=== PATIENT | female | born 1995 | race Caucasian/White ===

== ENCOUNTER 2021-07-18 01:48 | Emergency (ER) | payer OTHER ==
[~2021-07-18] VITALS: Ht 170 cm; Wt 134.2 kg
[2021-07-18 02:04] VITALS: BP 149/93
[2021-07-18] MEDS ORDERED: morphine INJ 10 MG/ML 1ML (SYR OR VIAL) IVP STA ×2 (02:43→05:02)
[2021-07-18] MEDS ORDERED: ONDANSETRON 4 MG/2 ML (SDV) Z0FRAN IVP ONE (02:45)
[2021-07-18 02:46] LABS: BASOPHILS % (AUTO) 0 % (0-10); EOSINOPHILS # (AUTO) 0.2 10^3/uL (0.0-0.3); EOSINOPHILS % (AUTO) 2 % (0-10); HEMATOCRIT 43 % (35-52); LYMPHOCYTES # (AUTO) 3.8 X 10^3 (1.0-4.0); LYMPHOCYTES % (AUTO) 42 % (12-44); MEAN CORPUSCULAR HEMOGLOBIN 28 pg (25-34); MEAN CORPUSCULAR HGB CONC 32 g/dL (32-36); MEAN CORPUSCULAR VOLUME 88 fL (80-99); MEAN PLATELET VOLUME 10.3 fL (9.0-12.2); MONOCYTES # (AUTO) 0.6 X 10^3 (0.0-1.0); MONOCYTES % (AUTO) 7 % (0-12); NEUTROPHILS # (AUTO) 4.4 X 10^3 (1.8-7.8); NEUTROPHILS % (AUTO) 49 % (42-75); PLATELET COUNT 251 10^3/uL (130-400)
--- NOTE | 2021-07-18 02:48 | ED Back Pain ---
General Chief Complaint: Back Problems Stated Complaint: UPPER BACK PAIN Nursing Triage Note: PT PRESENTS WITH SUDDEN ONSET OF BACK PAIN THAT WOKE HER UP. REPORTS THE PAIN IS LOCATED ON THE LEFT UPPER/MIDDLE AREA OF HER BACK. REPORTS THE PAIN IS CAUSING SOB AND THE PAIN WORSENS WITH DEEP BREATHING. NO KNOWN INJURY. Source of Information: Patient History of Present Illness Date Seen by Provider: Jul 18, 2021 Time Seen by Provider: 02:00 Initial Comments Patient is a 25-year-old female presents with right upper quadrant pain rating to her right shoulder blade waking her from sleep 2 hours prior to arrival. Pain is sharp, rated moderate to severe worse with deep breathing. Pain is worse with palpation of upper abdomen. She reports shortness of breath secondary to pain. Denies fever chills, nausea vomiting or sweats. No flank pain, hematuria, urinary frequency urgency or dysuria. No history of kidney stones. No prior abdominal surgeries. Patient is currently on control. Timing/Duration: 1-3 Hours Severity: Moderate Pain/Injury Location: Other Radiation: Other Method of Injury: Other Modifying Factors: Improves With Other Associated Symptoms: other Allergies and Home Medications Allergies Coded Allergies: No Known Drug Allergies (Unverified , 07/18/21) Patient Home Medication List Home Medication List Reviewed: Yes Review of Systems Constitutional: see HPI EENTM: see HPI Respiratory: see HPI Cardiovascular: see HPI Gastrointestinal: see HPI Genitourinary: see HPI Musculoskeletal: see HPI Skin: see HPI Psychiatric/Neurological: See HPI All Other Systems Reviewed Negative Unless Noted: No Past Kpsqvsy-Kbkzqq-Kdimdh Hx Patient Social History Tobacco Use?: No Substance use?: No Alcohol Use?: No Pt feels they are or have been: No Immunizations Up To Date Influenza Vaccine Up-to-Date: No; Not Current Physical Exam Vital Signs Vital Signs - First Documented 07/18/21 07/18/21 02:04 02:48 Temp 37.0 Pulse 106 Resp 22 B/P (MAP) 149/93 (111) Pulse Ox 97 O2 Delivery Room Air Capillary Refill : Height, Weight, BMI Height: '" Weight: lbs. oz. kg; 46.00 BMI Method: General Appearance: No Apparent Distress, WD/WN, Moderate Distress HEENT: PERRL/EOMI Neck: Full Range of Motion, Non Tender, Supple Cardiovascular: Regular Rate, Rhythm Respiratory: Chest Non Tender, Lungs Clear Gastrointestinal: Soft, Tenderness (Right upper quadrant pain/tenderness) Back: Normal Inspection, No CVA Tenderness Neurologic/Psychiatric: Alert, Oriented x3, Normal Mood/Affect, conservation officer II-XII Norm as Tested Progress/Results/Core Measures Results/Orders Lab Results Laboratory Tests Test 07/18/21 02:41 07/18/21 03:20 Range/Units White Blood Count 9.0 4.3-11.0 10^3/uL Red Blood Count 4.93 3.80-5.11 10^6/uL Hemoglobin 14.0 11.5-16.0 g/dL Hematocrit 43 35-52 % Mean Corpuscular Volume 88 80-99 fL Mean Corpuscular Hemoglobin 28 25-34 pg Mean Corpuscular Hemoglobin Concent 32 32-36 g/dL Red Cell Distribution Width 13.9 10.0-14.5 % Platelet Count 251 130-400 10^3/uL Mean Platelet Volume 10.3 9.0-12.2 fL Neutrophils (%) (Auto) 49 42-75 % Lymphocytes (%) (Auto) 42 12-44 % Monocytes (%) (Auto) 7 0-12 % Eosinophils (%) (Auto) 2 0-10 % Basophils (%) (Auto) 0 0-10 % Neutrophils # (Auto) 4.4 1.8-7.8 X 10^3 Lymphocytes # (Auto) 3.8 1.0-4.0 X 10^3 Monocytes # (Auto) 0.6 0.0-1.0 X 10^3 Eosinophils # (Auto) 0.2 0.0-0.3 10^3/uL Basophils # (Auto) 0.0 0.0-0.1 10^3/uL Sodium Level 142 135-145 MMOL/L Potassium Level 4.3 3.6-5.0 MMOL/L Chloride Level 104 98-107 MMOL/L Carbon Dioxide Level 23 21-32 MMOL/L Anion Gap 15 H 5-14 MMOL/L Blood Urea Nitrogen 18 7-18 MG/DL Creatinine 0.68 0.60-1.30 MG/DL Estimat Glomerular Filtration Rate 123 BUN/Creatinine Ratio 26 Glucose Level 97 70-105 MG/DL Calcium Level 9.7 8.5-10.1 MG/DL Corrected Calcium 9.5 8.5-10.1 MG/DL Total Bilirubin 0.3 0.1-1.0 MG/DL Aspartate Amino Transf (AST/SGOT) 48 H 5-34 U/L Alanine Aminotransferase (ALT/SGPT) 35 0-55 U/L Alkaline Phosphatase 73 40-136 U/L Total Protein 7.7 6.4-8.2 GM/DL Albumin 4.3 3.2-4.5 GM/DL Lipase 36 8-78 U/L Urine Color YELLOW Urine Clarity CLEAR Urine pH 6.0 5-9 Urine Specific [place] >=1.030 1.016-1.022 Urine Protein 1+ H NEGATIVE Urine Glucose (UA) NEGATIVE NEGATIVE Urine Ketones NEGATIVE NEGATIVE Urine Nitrite NEGATIVE NEGATIVE Urine Bilirubin NEGATIVE NEGATIVE Urine Urobilinogen 0.2 < = 1.0 MG/DL Urine Leukocyte Esterase NEGATIVE NEGATIVE Urine RBC (Auto) 2+ H NEGATIVE Urine RBC 10-25 H /HPF Urine WBC 2-5 /HPF Urine Squamous Epithelial Cells 10-25 H /HPF Urine Crystals NONE /LPF Urine Bacteria MODERATE H /HPF Urine Casts PRESENT /LPF Urine Coarse Granular Casts 0-2 H /LPF Urine Mucus LARGE H /LPF Urine Culture Indicated NO My Orders Orders - JACKELIN FERMIN DO Cbc With Automated Diff (07/18/21 02:29) Comprehensive Metabolic Panel (07/18/21 02:29) Ua Culture If Indicated (07/18/21 02:29) Lipase (07/18/21 02:29) Urine Bedside (07/18/21 02:29) Morphine Injection (Morphine Injection (07/18/21 02:43) Ondansetron Injection (Zofran Injectio (07/18/21 02:45) Ct Abdomen/Pelvis W (07/18/21 03:08) Iohexol Injection (Omnipaque 350 Mg/Ml 1 (07/18/21 03:15) Received Contrast (Hold Metformin- Contr (07/18/21 03:15) Sodium Chloride Flush (Catheter Flush Sy (07/18/21 03:15) Ns (Ivpb) (Sodium Chloride 0.9% Ivpb Bag (07/18/21 03:15) Medications Given in ED Current Medications Medications Dose Ordered Sig/Jose Route Start Time Stop Time Status Last Admin Dose Admin Iohexol 100 ml ONCE ONCE IV 07/18/21 03:15 07/18/21 03:16 DC 07/18/21 03:34 100 ML Ondansetron HCl 4 mg ONCE ONCE IVP 07/18/21 02:45 07/18/21 02:46 DC 07/18/21 02:48 4 MG Sodium Chloride 10 ml NEEDED PRN IV 07/18/21 03:15 07/18/21 03:34 10 ML Sodium Chloride 100 ml ONCE ONCE IV 07/18/21 03:15 07/18/21 03:16 DC 07/18/21 03:34 100 ML Vital Signs/I&O 07/18/21 07/18/21 07/18/21 07/18/21 02:04 02:48 02:57 04:02 Temp 37.0 Pulse 106 93 91 Resp B/P (MAP) 149/93 (111) 163/105 100/61 Pulse Ox 97 99 98 O2 Delivery Room Air Room Air Room Air Blood Pressure Mean: 111 Departure Communication (Admissions) CT abdomen pelvis: No acute findings per radiology report. Lab and imaging studies reviewed and reassuring. Symptoms resolved with treatment. Abdomen remains soft nonsurgical. Symptomatology is suggestive of biliary colic versus peptic ulcer disease versus unknown cause. Recommendations are supportive care watchful waiting and PCP follow-up early next week. Return precautions reviewed. Patient verbalizes understanding and agreement with discharge instructions prior to departure. Impression Primary Impression: Right upper quadrant pain Disposition: 01 HOME, SELF-CARE Condition: Stable Departure-Patient Inst. Decision time for Depature: 04:56 Referrals: NO,LOCAL PHYSICIAN (PCP/Family) Primary Care Physician Patient Instructions: Abdominal Pain, Adult ED Add. Discharge Instructions: You were evaluated in the emergency department for upper abdominal pain radiating to your back. Lab and CT imaging studies were performed and are nond iagnostic. The exact cause of your symptoms has not been determined but is suggested of gallbladder or peptic ulcer disease. Please avoid starchy foods, fatty foods and follow-up with your PCP early next week. Take newly prescribed medications as directed. Return to the ED if new or worsening symptoms peer All discharge instructions reviewed with patient and/or family. Voiced understanding. Scripts Famotidine (Pepcid) 20 Mg Tablet 20 MG PO BID, #10 TAB Prov: JACKELIN FERMIN DO 07/18/21 Ondansetron (Ondansetron Odt) 4 Mg Tab.rapdis 4 MG PO Q6H, #10 TAB Prov: JACKELIN FERMIN DO 07/18/21 Tramadol HCl (Tramadol HCl) 50 Mg Tablet 50 MG PO Q6H PRN for PAIN for 3 Days, #12 TAB 0 Refills Prov: JACKELIN FERMIN DO 07/18/21 JACKELIN FERMIN DO Jul 18, 2021 02:48
[2021-07-18 03:01] LABS: POTASSIUM 4.3 MMOL/L (3.6-5.0)
[2021-07-18 03:02] LABS: ALBUMIN 4.3 GM/DL (3.2-4.5); BILIRUBIN,TOTAL 0.3 MG/DL (0.1-1.0); CALCIUM 9.7 MG/DL (8.5-10.1); CREATININE SERUM 0.68 MG/DL (0.60-1.30); TOTAL PROTEIN 7.7 GM/DL (6.4-8.2)
[2021-07-18] MEDS ORDERED: HOLD METFORMIN - RECEIVED CONTRAST 20 ML VIAL IV SCH (03:15)
[2021-07-18] MEDS ORDERED: IOHEXOL 350 MG/ML 100 ML (OMNIPAQUE 350) VIAL IV ONE (03:15)
[2021-07-18] MEDS ORDERED: CATHETER FLUSH 10 ML SYR IV PRN (03:15)
[2021-07-18] MEDS ORDERED: NS 100 ML (IVPB) BAG IV ONE (03:15)
[2021-07-18 03:22] LABS: BILIRUBIN,URINE NEGATIVE (NEGATIVE); CLARITY,URINE CLEAR; COLOR,URINE YELLOW; GLUCOSE, URINE (UA) NEGATIVE (NEGATIVE); KETONES,URINE NEGATIVE (NEGATIVE); LEUKOCYTE ESTERASE ,URINE NEGATIVE (NEGATIVE); NITRITE,URINE NEGATIVE (NEGATIVE); PROTEIN,URINE 1+ (NEGATIVE)
[2021-07-18 03:27] LABS: BACTERIA,URINE MODERATE /HPF
[2021-07-18] MEDS ORDERED: FAMO-119 PO (05:00)
[2021-07-18] MEDS ORDERED: ONDA4TAB11 PO (05:00)
[2021-07-18] MEDS ORDERED: TRM50T PO (05:00)
--- NOTE | 2021-07-18 06:59 | Diagnostic Imaging Report ---
PROCEDURE: CT abdomen and pelvis with contrast. TECHNIQUE: Multiple contiguous axial images were obtained through the abdomen and pelvis after administration of intravenous contrast. Auto Exposure Controls were utilized during the CT exam to meet ALARA standards for radiation dose reduction. All CT scans use one or more of the following dose optimizing techniques: automated exposure control, MA and/or KvP adjustment based on patient size and exam type or iterative reconstruction. INDICATION: Right upper quadrant pain. EXAMINATION: CT abdomen and pelvis with contrast 07/18/2021. FINDINGS: The lung bases appear clear. There is mild fatty infiltration within the liver which is otherwise normal. Gallbladder unremarkable. Spleen unremarkable. Adjacent splenule noted. Adrenal glands and pancreas normal. There is no acute process in either kidney. There are diffuse distended thick walled small bowel loops throughout the left mid abdomen. No obstructive process is seen. There is no ascites or free air. Scattered slightly prominent lymph nodes seen throughout the right lower quadrant nonspecific. The adjacent appendix appears normal. The osseous structures demonstrate no evidence for acute abnormality. IMPRESSION: 1. Slightly prominent lymph nodes in the right lower quadrant which could be normal for patient versus a process such as mesenteric adenitis. Correlate with symptoms. 2. Minimally prominent small bowel loops in the left upper quadrant likely due to timing of peristalsis with a mild enteritis not excluded. Again correlate with patient's symptoms. Otherwise incidental findings as discussed above. There are a few additional nonemergent findings not mentioned in the [facility] report. Dictated by: Dictated on workstation # [id number]
== END 2021-07-18 05:28 | disposition home or self-care (01) ==
LOC: ER FS 01:57
DX: R10.11 Right upper quadrant pain (principal)
CPT/HCPCS: 36415; 74177; 80053; 81000; 83690; 85025; Q9967

== ENCOUNTER → 2021-08-03 | Outpatient (CLI) | payer OTHER ==
[~2021-08-03] MED LIST: FAMO-119 PO; ONDA4TAB11 PO; TRM50T PO
--- NOTE | 2021-08-03 10:03 | Diagnostic Imaging Report ---
PROCEDURE: US Gallbladder. INDICATION: Right upper quadrant pain TECHNIQUE: Multiple grayscale sonographic images were obtained of the right upper quadrant of the abdomen. CORRELATION STUDY: None FINDINGS: LIVER: There is generalized increased echotexture within the visualized portions of the liver. The main portal vein is patent and with normal direction of flow. Liver length 18.3 cm. GALLBLADDER: The gallbladder demonstrates no definitive shadowing gallstones, abnormal gallbladder wall thickening or pericholecystic fluid. COMMON BILE DUCT: Nondilated at 0.3 cm. AORTA/IVC: Not well visualized. PANCREAS: Visualized portions appearing unremarkable. RIGHT KIDNEY: 12.1 x 6.2 x 5.2 cm. No hydronephrosis. OTHER: None. IMPRESSION: 1. Fatty infiltration of the liver parenchyma. Otherwise, unremarkable appearing right upper quadrant abdominal ultrasound. Dictated by: Dictated on workstation # [id number]
== END ==
LOC: RAD 08:30
PROVIDERS: ATTEND Surgery
DX: K76.0 Fatty (change of) liver, not elsewhere classified (principal)
CPT/HCPCS: 76705

== ENCOUNTER 2021-09-04 03:50 | Emergency (ER) | payer OTHER ==
[~2021-09-04] VITALS: Ht 170.5 cm; Wt 131.0 kg
[2021-09-04] MEDS ORDERED: morphine INJ 10 MG/ML 1ML (SYR OR VIAL) IVP STA ×2 (04:14→04:37)
[2021-09-04] MEDS ORDERED: NS IV 1000 ML 1,000 ML IV SCH (04:15)
[2021-09-04] MEDS ORDERED: FAMOTIDINE 20MG/2ML IV (PEPCID) IVP ONE (04:15)
[2021-09-04] MEDS ORDERED: ONDANSETRON 4 MG/2 ML (SDV) Z0FRAN IVP ONE (04:15)
[2021-09-04] MEDS ORDERED: KETOROLAC 30 MG/ML VIAL IVP ONE (04:15)
--- NOTE | 2021-09-04 04:20 | ED Abdominal Pain ---
General Chief Complaint: Abdominal/GI Problems Stated Complaint: ABDOMINAL PAIN Nursing Triage Note: Pt c/o right sided abd pain x 30 minutes with n/v. Pt stated "this feels like my gallbladder but this is the worst. I was supposed to have a hiatal scan but it somehow got cancelled." Pt denies fever or urinary symptoms. 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 Source of Information: Patient History of Present Illness Date Seen by Provider: September 04, 2021 Time Seen by Provider: 04:00 Initial Comments Patient is a 25-year-old female who presents with epigastric pain nausea vomiting. Pain is moderate to severe radiates around back towards right shoulder blade. It is worse with palpation after eating. This is patient's third episode in several months. She has been evaluated in this emergency department before by this provider and diagnosed with biliary colic. She had outpatient gallbladder ultrasound which was negative is currently awaiting HIDA scan.. She does follow-up with a general surgeon in the office. She reports nausea without vomiting. No fever chills or sweats. No chest pain palpitations or shortness of breath. No flank pain, urinary frequency urgency or dysuria or hematuria. No history of kidney stones. No constipation or diarrhea. Last menstrual period was 2 months ago. No other acute symptoms or complaints. Timing/Duration: 1-3 Hours Severity/Quality: Other Location: Other Radiation: Other Activities at Onset: Other Modifying Factors: Improves With Other Associated Symptoms: Other Allergies and Home Medications Allergies Coded Allergies: No Known Drug Allergies (Unverified , 07/18/21) Patient Home Medication List Home Medication List Reviewed: Yes Famotidine (Pepcid) 20 Mg Tablet, 20 MG PO BID Prescribed by: JACKELIN FERMIN on 07/18/21 0500 Ondansetron (Ondansetron Odt) 4 Mg Tab.rapdis, 4 MG PO Q6H Prescribed by: JACKELIN FERMIN on 07/18/21 0500 Tramadol HCl (Tramadol HCl) 50 Mg Tablet, 50 MG PO Q6H PRN for PAIN Prescribed by: JACKELIN FERMIN on 07/18/21 0500 Review of Systems Review of Systems Constitutional: see HPI EENTM: See HPI Respiratory: See HPI Cardiovascular: See HPI Gastrointestinal: See HPI Genitourinary: See HPI Skin: see HPI Endocrine: See HPI Hematologic/Lymphatic: See HPI Past Npyguxn-Obklob-Ndepcu Hx Patient Social History Tobacco Use?: Yes Use of E-Cig and/or Vaping dev: No Substance use?: No Alcohol Use?: No Pt feels they are or have been: No Immunizations Up To Date Influenza Vaccine Up-to-Date: No; Not Current First/Initial COVID19 Vaccinat: denies Physical Exam Vital Signs Vital Signs - First Documented 09/04/21 03:52 Temp 36.1 Pulse 109 Resp 17 B/P (MAP) 143/78 (99) Pulse Ox 98 O2 Delivery Room Air Capillary Refill : Height/Weight/BMI Height: '" Weight: lbs. oz. kg; 45.00 BMI Method: General Appearance: moderate distress HEENT: PERRL/EOMI, normal ENT inspection Respiratory: lungs clear Cardiovascular: regular rate, rhythm Gastrointestinal: soft, tenderness (mid epigastric ) Back: normal inspection, no CVA tenderness Neurologic/Psychiatric: alert, oriented x 3 Focused Exam Sepsis Stage: Ruled Out Progress/Results/Core Measures Results/Orders My Orders Orders - JACKELIN FERMIN DO Cbc With Automated Diff (09/04/21 04:08) Comprehensive Metabolic Panel (09/04/21 04:08) Ns Iv 1000 Ml (Sodium Chloride 0.9%) (09/04/21 04:15) Ondansetron Injection (Zofran Injectio (09/04/21 04:15) Famotidine Injection (Pepcid Injection) (09/04/21 04:15) Hcg,Qualitative Serum (09/04/21 04:08) Ketorolac Injection (Toradol Injection) (09/04/21 04:15) Morphine Injection (Morphine Injection (09/04/21 04:14) Vital Signs/I&O 09/04/21 03:52 Temp 36.1 Pulse 109 Resp 17 B/P (MAP) 143/78 (99) Pulse Ox 98 O2 Delivery Room Air Blood Pressure Mean: 99 Departure Communication (Admissions) Patient with recurrent biliary colic. Labs reviewed abdomen soft, nonsurgical. Patient resting comfortably on recheck. Recommendations supportive care with PCP follow-up. Impression Primary Impression: Biliary colic Disposition: 01 HOME, SELF-CARE Condition: Stable Departure-Patient Inst. Referrals: NO,LOCAL PHYSICIAN (PCP/Family) Primary Care Physician Patient Instructions: Severe Abdominal Pain, Adult (DC) Add. Discharge Instructions: You were evaluated in the emergency department for abdominal pain. Your exam is consistent with recurrent gallbladder pain. Please go home and rest, drink clear liquids only for the next 6 to 12 hours and gradually increase to a bland diet as tolerated. Take newly prescribed medications as directed follow-up with Dr. AGUILAR office to coordinate outpatient HIDA scan. Return to the ED if new or worsening symptoms. All discharge instructions reviewed with patient and/or family. Voiced understanding. Scripts Ondansetron (Ondansetron Odt) 4 Mg Tab.rapdis 4 MG PO Q6H, #10 TAB Prov: JACKELIN FERMIN DO 09/04/21 Oxycodone HCl/Acetaminophen (Percocet 5-325 mg Tablet) 1 Each Tablet 1 TAB PO Q4H for PAIN-MODERATE MDD 6 TABS for 7 Days, #14 TAB Prov: JACKELIN FERMIN DO 09/04/21 JACKELIN FERMIN DO September 04, 2021 04:20
[2021-09-04] MEDS ORDERED: ONDA4TAB11 PO (04:25)
[2021-09-04] MEDS ORDERED: OXYC1TAB87 PO (04:25)
[2021-09-04 04:29] LABS: BASOPHILS # (AUTO) 0.1 10^3/uL (0.0-0.1); BASOPHILS % (AUTO) 1 % (0-10); EOSINOPHILS # (AUTO) 0.1 10^3/uL (0.0-0.3); EOSINOPHILS % (AUTO) 2 % (0-10); HEMATOCRIT 41 % (35-52); HEMOGLOBIN 13.9 g/dL (11.5-16.0); LYMPHOCYTES # (AUTO) 3.5 10^3/uL (1.0-4.0); LYMPHOCYTES % (AUTO) 52 % (12-44); MEAN CORPUSCULAR HEMOGLOBIN 28 pg (25-34); MEAN CORPUSCULAR HGB CONC 34 g/dL (32-36); MEAN CORPUSCULAR VOLUME 82 fL (80-99); MEAN PLATELET VOLUME 9.5 fL (9.0-12.2); MONOCYTES # (AUTO) 0.8 10^3/uL (0.0-1.0); MONOCYTES % (AUTO) 12 % (0-12); NEUTROPHILS # (AUTO) 2.3 10^3/uL (1.8-7.8); NEUTROPHILS % (AUTO) 33 % (42-75); PLATELET COUNT 266 10^3/uL (130-400); WHITE BLOOD COUNT 6.9 10^3/uL (4.3-11.0)
[2021-09-04 04:49] LABS: CREATININE SERUM 0.77 MG/DL (0.60-1.30); POTASSIUM 4.1 MMOL/L (3.6-5.0)
[2021-09-04 04:50] VITALS: BP 143/78
[2021-09-04 04:50] LABS: ALBUMIN 4.1 GM/DL (3.2-4.5); BILIRUBIN,TOTAL 0.3 MG/DL (0.1-1.0); CALCIUM 9.6 MG/DL (8.5-10.1); TOTAL PROTEIN 7.6 GM/DL (6.4-8.2)
== END 2021-09-04 04:50 | disposition home or self-care (01) ==
LOC: EDUNIT# 03:50 → ER FS 03:53
DX: K80.50 Calculus of bile duct without cholangitis or cholecystitis without obstruction (principal)
CPT/HCPCS: 36415; 80053; 84703; 85025

== ENCOUNTER 2021-09-04 18:14 | Emergency (ER) | payer OTHER ==
[~2021-09-04] VITALS: Ht 170.2 cm; Wt 131.5 kg
[~2021-09-04 18:14] MED LIST changes: +OXYC1TAB87 PO
[2021-09-04 18:22] VITALS: BP 119/96
[2021-09-04] MEDS ORDERED: HYOSCYAMINE 0.125 MG (LEVSIN) TAB ONE (19:28)
[2021-09-04] MEDS ORDERED: fentaNYL INJ 100 MCG/2 ML AMP ONE (19:28)
[2021-09-04] MEDS ORDERED: KETOROLAC 30 MG/ML VIAL ONE (19:29)
[2021-09-04] MEDS ORDERED: fentaNYL INJ 100 MCG/2 ML AMP IVP ONE (19:30)
[2021-09-04] MEDS ORDERED: HYOSCYAMINE 0.125 MG (LEVSIN) TAB PO ONE (19:30)
[2021-09-04] MEDS ORDERED: KETOROLAC 30 MG/ML VIAL IVP ONE (19:30)
--- NOTE | 2021-09-04 19:36 | ED Abdominal Pain ---
General Chief Complaint: Abdominal/GI Problems Stated Complaint: GALLBLADDER ATTACK Nursing Triage Note: PT AMBULATE TO ROOM 01 WITH C/O GALLBLADDER PAIN. PT REPORTS A GALLBLADDER ATTACK LASTING X3 HOURS. PT WAS SEEN IN THE [place] ED THIS MORNING AND TOLD THAT PAIN MAY BE RELATED TO HER GALLBLADDER. PT GIVEN PERCOCET AND PT STATES THAT THIS PAIN MED IS NOT ALEIVING THE PAIN. PT REPORTS A HIDASCAN IS SCHEDULED FOR TUESDAY. Source of Information: Patient Exam Limitations: No Limitations History of Present Illness Date Seen by Provider: September 04, 2021 Time Seen by Provider: 19:34 Initial Comments To ER with c/o gallbladder attack. States that she has had a normal gallbladder US, is scheduled for HIDA scan in 72 hours. Was at [facility] today and given Percocet with no improvement in Pain. This particular attack is severe epigastric abdominal pain tender to touch associated with vomiting this morning. Timing/Duration: 4-6 Hours Severity/Quality: Moderate Radiation: No Radiation Associated Symptoms: Nausea/Vomiting Allergies and Home Medications Allergies Coded Allergies: No Known Drug Allergies (Unverified , 07/18/21) Patient Home Medication List Home Medication List Reviewed: Yes Famotidine (Pepcid) 20 Mg Tablet, 20 MG PO BID Prescribed by: JACKELIN FERMIN on 07/18/21 0500 Ondansetron (Ondansetron Odt) 4 Mg Tab.rapdis, 4 MG PO Q6H Prescribed by: JACKELIN FERMIN on 07/18/21 0500 Ondansetron (Ondansetron Odt) 4 Mg Tab.rapdis, 4 MG PO Q6H Prescribed by: JACKELIN FERMIN on 09/04/21 0425 Oxycodone HCl/Acetaminophen (Percocet 5-325 mg Tablet) 1 Each Tablet, 1 TAB PO Q4H Prescribed by: JACKELIN FERMIN on 09/04/21 0426 Tramadol HCl (Tramadol HCl) 50 Mg Tablet, 50 MG PO Q6H PRN for PAIN Prescribed by: JACKELIN FERMIN on 07/18/21 0500 Review of Systems Review of Systems Constitutional: see HPI EENTM: No Symptoms Reported Respiratory: No Symptoms Reported Cardiovascular: No Symptoms Reported Gastrointestinal: See HPI, Abdominal Pain, Nausea, Vomiting Genitourinary: No Symptoms Reported Musculoskeletal: no symptoms reported Skin: no symptoms reported Psychiatric/Neurological: No Symptoms Reported Endocrine: No Symptoms Reported Hematologic/Lymphatic: No Symptoms Reported Past Dihznkc-Cgwwgp-Uiempi Hx Patient Social History Smoking Status: Never a Smoker Smokeless Tobacco Frequency: Never a User Use of E-Cig and/or Vaping dev: No Use of E-Cig and/or Vaping Roberto: Never a User Substance use?: No Alcohol Use?: No Pt feels they are or have been: No Immunizations Up To Date First/Initial COVID19 Vaccinat: denies Physical Exam Vital Signs Vital Signs - First Documented 09/04/21 18:22 Temp 36.4 Pulse 83 Resp 18 B/P (MAP) 119/96 (104) O2 Delivery Room Air Capillary Refill : Less Than 3 Seconds Height/Weight/BMI Height: '" Weight: lbs. oz. kg; 45.00 BMI Method: General Appearance: WD/WN, no apparent distress HEENT: PERRL/EOMI, normal ENT inspection Neck: non-tender, full range of motion Gastrointestinal: normal bowel sounds, soft, tenderness Extremities: normal range of motion, non-tender Neurologic/Psychiatric: alert, normal mood/affect, oriented x 3 Skin: normal color, warm/dry Progress/Results/Core Measures Results/Orders Lab Results Laboratory Tests Test 09/04/21 18:32 Range/Units White Blood Count 5.6 4.3-11.0 10^3/uL Red Blood Count 5.10 3.80-5.11 10^6/uL Hemoglobin 14.4 11.5-16.0 g/dL Hematocrit 43 35-52 % Mean Corpuscular Volume 85 80-99 fL Mean Corpuscular Hemoglobin 28 25-34 pg Mean Corpuscular Hemoglobin Concent 33 32-36 g/dL Red Cell Distribution Width 13.1 10.0-14.5 % Platelet Count 270 130-400 10^3/uL Mean Platelet Volume 9.8 9.0-12.2 fL Immature Granulocyte % (Auto) 0 % Neutrophils (%) (Auto) 54 42-75 % Lymphocytes (%) (Auto) 34 12-44 % Monocytes (%) (Auto) 9 0-12 % Eosinophils (%) (Auto) 1 0-10 % Basophils (%) (Auto) 1 0-10 % Neutrophils # (Auto) 3.0 1.8-7.8 10^3/uL Lymphocytes # (Auto) 1.9 1.0-4.0 10^3/uL Monocytes # (Auto) 0.5 0.0-1.0 10^3/uL Eosinophils # (Auto) 0.1 0.0-0.3 10^3/uL Basophils # (Auto) 0.1 0.0-0.1 10^3/uL Immature Granulocyte # (Auto) 0.0 0.0-0.1 10^3/uL Sodium Level 138 135-145 MMOL/L Potassium Level 4.1 3.6-5.0 MMOL/L Chloride Level 104 98-107 MMOL/L Carbon Dioxide Level 21 21-32 MMOL/L Anion Gap 13 5-14 MMOL/L Blood Urea Nitrogen 13 7-18 MG/DL Creatinine 0.83 0.60-1.30 MG/DL Estimat Glomerular Filtration Rate 100 BUN/Creatinine Ratio 16 Glucose Level 108 H 70-105 MG/DL Calcium Level 9.3 8.5-10.1 MG/DL Corrected Calcium 9.3 8.5-10.1 MG/DL Total Bilirubin 0.7 0.1-1.0 MG/DL Aspartate Amino Transf (AST/SGOT) 60 H 5-34 U/L Alanine Aminotransferase (ALT/SGPT) 89 H 0-55 U/L Alkaline Phosphatase 93 40-136 U/L Total Protein 7.6 6.4-8.2 GM/DL Albumin 4.0 3.2-4.5 GM/DL Lipase 34 8-78 U/L My Orders Orders - ALEJANDRO OTOOLE APRN Cbc With Automated Diff (09/04/21 19:26) Comprehensive Metabolic Panel (09/04/21 19:26) Lipase (09/04/21 19:26) Hyoscyamine Sl Tablet (Levsin Sl Tablet) (09/04/21 19:30) Ketorolac Injection (Toradol Injection) (09/04/21 19:30) Fentanyl Inj (Sublimaze Injection) (09/04/21 19:30) Hyoscyamine Sl Tablet (Levsin Sl Tablet) (09/04/21 19:28) Fentanyl Inj (Sublimaze Injection) (09/04/21 19:28) Ketorolac Injection (Toradol Injection) (09/04/21 19:29) Medications Given in ED Current Medications Medications Dose Ordered Sig/Jose Route Start Time Stop Time Status Last Admin Dose Admin Fentanyl Citrate 75 mcg ONCE ONCE IVP 09/04/21 19:30 09/04/21 19:32 DC 09/04/21 19:30 75 MCG Hyoscyamine Sulfate 0.125 mg ONCE ONCE PO 09/04/21 19:30 09/04/21 19:32 DC 09/04/21 19:30 0.125 MG Ketorolac Tromethamine 30 mg STK-MED ONCE .ROUTE 09/04/21 19:29 09/04/21 19:31 DC 09/04/21 19:30 30 MG Vital Signs/I&O 09/04/21 18:22 Temp 36.4 Pulse 83 Resp 18 B/P (MAP) 119/96 (104) O2 Delivery Room Air Blood Pressure Mean: 104 Departure Communication (Admissions) 2009-Is now pain free. Will dc to home. Impression Primary Impression: Right upper quadrant pain Additional Impression: Biliary colic Disposition: HOME, SELF-CARE Condition: Stable Departure-Patient Inst. Decision time for Depature: 20:05 Referrals: NO,LOCAL PHYSICIAN (PCP/Family) Primary Care Physician Patient Instructions: Acute Pain, Adult (DC) Add. Discharge Instructions: REturn to ER for any concerns 2. keep your appointment for the HIDA scan on Tuesday. All discharge instructions reviewed with patient and/or family. Voiced unders tanding. ALEJANDRO OTOOLE PICKLER HELPER September 04, 2021 19:36
[2021-09-04 19:42] LABS: BASOPHILS # (AUTO) 0.1 10^3/uL (0.0-0.1); BASOPHILS % (AUTO) 1 % (0-10); EOSINOPHILS # (AUTO) 0.1 10^3/uL (0.0-0.3); EOSINOPHILS % (AUTO) 1 % (0-10); HEMATOCRIT 43 % (35-52); HEMOGLOBIN 14.4 g/dL (11.5-16.0); LYMPHOCYTES # (AUTO) 1.9 10^3/uL (1.0-4.0); LYMPHOCYTES % (AUTO) 34 % (12-44); MEAN CORPUSCULAR HEMOGLOBIN 28 pg (25-34); MEAN CORPUSCULAR HGB CONC 33 g/dL (32-36); MEAN CORPUSCULAR VOLUME 85 fL (80-99); MEAN PLATELET VOLUME 9.8 fL (9.0-12.2); MONOCYTES # (AUTO) 0.5 10^3/uL (0.0-1.0); MONOCYTES % (AUTO) 9 % (0-12); NEUTROPHILS % (AUTO) 54 % (42-75); PLATELET COUNT 270 10^3/uL (130-400); WHITE BLOOD COUNT 5.6 10^3/uL (4.3-11.0)
[2021-09-04 19:59] LABS: BILIRUBIN,TOTAL 0.7 MG/DL (0.1-1.0); CALCIUM 9.3 MG/DL (8.5-10.1); CREATININE SERUM 0.83 MG/DL (0.60-1.30); POTASSIUM 4.1 MMOL/L (3.6-5.0); TOTAL PROTEIN 7.6 GM/DL (6.4-8.2)
== END 2021-09-04 20:25 | disposition home or self-care (01) ==
LOC: EDUNIT# 18:14 → ER 18:17
DX: K80.50 Calculus of bile duct without cholangitis or cholecystitis without obstruction (principal)
CPT/HCPCS: 36415; 80053; 83690; 85025

== ENCOUNTER 2021-09-06 06:52 | Emergency (ER) | payer OTHER ==
[~2021-09-06] VITALS: Ht 170.2 cm; Wt 133.0 kg
[2021-09-06 06:55] VITALS: BP 130/83
[2021-09-06] MEDS ORDERED: FAMOTIDINE 20MG/2ML IV (PEPCID) IV STA (07:07)
[2021-09-06] MEDS ORDERED: KETOROLAC 30 MG/ML VIAL IVP STA (07:07)
[2021-09-06] MEDS ORDERED: METOCLOPRAMIDE INJ 10 MG/2 ML (REGLAN) IVP STA (07:07)
[2021-09-06] MEDS ORDERED: LACTATED RINGERS 1,000 ML IV STA (07:07)
[2021-09-06] MEDS ORDERED: HYOSCYAMINE 0.125 MG (LEVSIN) TAB SL ONE (07:15)
--- NOTE | 2021-09-06 07:22 | ED GI ---
General Chief Complaint: Abdominal/GI Problems Stated Complaint: ABDOMINAL PAIN History of Present Illness Date Seen by Provider: September 06, 2021 Time Seen by Provider: 07:05 Initial Comments 25 yo female presents with RUQ pain, pt has been having recurrent pain. Pt has been seen multiple times for similar pain. Pt seen both here and via [facility] in last 48 hrs. pt is scheduled for a HIDA scan tomorrow. pt reports she has taken 2 hydrocodone without any relief. pt complains of nausea, some vomiting. pt has had neg ct abd and gallbladder US. She presents today because of pain. no reports of fever, chills, cough, cp or urinary symptoms. Allergies and Home Medications Allergies Coded Allergies: No Known Drug Allergies (Unverified , 07/18/21) Patient Home Medication List Home Medication List Reviewed: Yes Famotidine (Pepcid) 20 Mg Tablet, 20 MG PO BID Prescribed by: JACKELIN FERMIN on 07/18/21 0500 Hyoscyamine Sulfate (Levsin-Sl) 0.125 Mg Tab.subl, 0.125 MG SL Q4H PRN for PAIN- MODERATE (5-7) Prescribed by: NAE ADEN on 09/06/21 0842 Ondansetron (Ondansetron Odt) 4 Mg Tab.rapdis, 4 MG PO Q6H Prescribed by: JACKELIN FERMIN on 07/18/21 0500 Ondansetron (Ondansetron Odt) 4 Mg Tab.rapdis, 4 MG PO Q6H Prescribed by: JACKELIN FERMIN on 09/04/21 0425 Oxycodone HCl/Acetaminophen (Percocet 5-325 mg Tablet) 1 Each Tablet, 1 TAB PO Q4H Prescribed by: JACKELIN FERMIN on 09/04/21 0426 Tramadol HCl (Tramadol HCl) 50 Mg Tablet, 50 MG PO Q6H PRN for PAIN Prescribed by: JACKELIN FERMIN on 07/18/21 0500 Review of Systems Review of Systems Constitutional: No chills, No fever Respiratory: Denies Cough, Denies Shortness of Air Cardiovascular: Denies Chest Pain, Denies Edema Gastrointestinal: Abdominal Pain, Nausea, Vomiting Musculoskeletal: back pain Skin: no symptoms reported Psychiatric/Neurological: No Symptoms Reported Endocrine: No Symptoms Reported Hematologic/Lymphatic: No Symptoms Reported Past Lskuhyb-Afwpdk-Uxptkg Hx Immunizations Up To Date First/Initial COVID19 Vaccinat: denies Physical Exam Vital Signs Vital Signs - First Documented 09/06/21 06:55 Temp 35.8 Pulse 85 Resp 16 B/P (MAP) 130/83 (99) Pulse Ox 98 O2 Delivery Room Air Capillary Refill : Height/Weight/BMI Height: '" Weight: lbs. oz. kg; 45.00 BMI Method: General Appearance: mild distress, obese HEENT: PERRL/EOMI, normal ENT inspection Neck: full range of motion, supple Respiratory: lungs clear, normal breath sounds, no respiratory distress Cardiovascular: normal peripheral pulses, regular rate, rhythm Gastrointestinal: soft; No distended, No guarding; tenderness Extremities: normal range of motion Neurologic/Psychiatric: alert, normal mood/affect, oriented x 3 Skin: normal color Focused Exam Lactate Level 09/06/21 08:25: Lactic Acid Level 1.46 Lactic Acid Level Laboratory Tests Test 09/06/21 08:25 Lactic Acid Level 1.46 MMOL/L (0.50-2.00) Progress/Results/Core Measures Results/Orders Lab Results Laboratory Tests Test 09/06/21 07:05 09/06/21 07:07 09/06/21 08:25 Range/Units White Blood Count 7.5 4.3-11.0 10^3/uL Red Blood Count 5.32 H 3.80-5.11 10^6/uL Hemoglobin 14.7 11.5-16.0 g/dL Hematocrit 45 35-52 % Mean Corpuscular Volume 84 80-99 fL Mean Corpuscular Hemoglobin 28 25-34 pg Mean Corpuscular Hemoglobin Concent 33 32-36 g/dL Red Cell Distribution Width 13.2 10.0-14.5 % Platelet Count 268 130-400 10^3/uL Mean Platelet Volume 10.0 9.0-12.2 fL Immature Granulocyte % (Auto) 0 % Neutrophils (%) (Auto) 45 42-75 % Lymphocytes (%) (Auto) 44 12-44 % Monocytes (%) (Auto) 9 0-12 % Eosinophils (%) (Auto) 2 0-10 % Basophils (%) (Auto) 1 0-10 % Neutrophils # (Auto) 3.3 1.8-7.8 10^3/uL Lymphocytes # (Auto) 3.3 1.0-4.0 10^3/uL Monocytes # (Auto) 0.7 0.0-1.0 10^3/uL Eosinophils # (Auto) 0.2 0.0-0.3 10^3/uL Basophils # (Auto) 0.1 0.0-0.1 10^3/uL Immature Granulocyte # (Auto) 0.0 0.0-0.1 10^3/uL Erythrocyte Sedimentation Rate 11 0-20 MM/HR Sodium Level 137 135-145 MMOL/L Potassium Level 4.7 3.6-5.0 MMOL/L Chloride Level 103 98-107 MMOL/L Carbon Dioxide Level 24 21-32 MMOL/L Anion Gap 10 5-14 MMOL/L Blood Urea Nitrogen 15 7-18 MG/DL Creatinine 0.79 0.60-1.30 MG/DL Estimat Glomerular Filtration Rate 106 BUN/Creatinine Ratio 19 Glucose Level 105 70-105 MG/DL Calcium Level 9.8 8.5-10.1 MG/DL Corrected Calcium 9.6 8.5-10.1 MG/DL Total Bilirubin 0.8 0.1-1.0 MG/DL Aspartate Amino Transf (AST/SGOT) 131 H 5-34 U/L Alanine Aminotransferase (ALT/SGPT) 211 H 0-55 U/L Alkaline Phosphatase 152 H 40-136 U/L C-Reactive Protein 1.37 H <0.50 MG/DL Total Protein 7.8 6.4-8.2 GM/DL Albumin 4.2 3.2-4.5 GM/DL Amylase Level 36 25-125 U/L Lipase 36 8-78 U/L Magnesium Level 2.0 1.6-2.4 MG/DL Lactic Acid Level 1.46 0.50-2.00 MMOL/L My Orders Orders - ADNE,NAE L DO Metoclopramide Injection (Reglan Injecti (09/06/21 07:07) Lactated Ringers (Lr 1000 Ml Iv Solution (09/06/21 07:07) Famotidine Injection (Pepcid Injection) (09/06/21 07:07) Hyoscyamine Sl Tablet (Levsin Sl Tablet) (09/06/21 07:15) Ketorolac Injection (Toradol Injection) (09/06/21 07:07) Ua Culture If Indicated (09/06/21 07:49) Cbc With Automated Diff (09/06/21 07:05) Amylase (09/06/21 07:05) Comprehensive Metabolic Panel (09/06/21 07:05) Crp Fs (09/06/21 07:05) Lipase (09/06/21 07:05) Ua Culture If Indicated (09/06/21 08:10) Erythrocyte Sedimentation Rate (09/06/21 07:05) Magnesium (09/06/21 07:07) Lactic Acid Analyzer (09/06/21 08:25) Medications Given in ED Current Medications Medications Dose Ordered Sig/Jose Route Start Time Stop Time Status Last Admin Dose Admin Hyoscyamine Sulfate 0.125 mg ONCE ONCE SL 09/06/21 07:15 09/06/21 07:16 DC 09/06/21 07:21 0.125 MG Vital Signs/I&O 09/06/21 09/06/21 06:55 08:47 Temp 35.8 Pulse 85 75 Resp 16 18 B/P (MAP) 130/83 (99) Pulse Ox 98 100 O2 Delivery Room Air Room Air Progress Progress Note : Progress Note Patient's ALT AST and alk phos elevated today where they have been fairly normal. This is consistent with biliary disease. She has a HIDA scan scheduled for tomorrow. Patient feels significantly better following her treatment in the ER. I will prescribe her Levsin to help with the biliary colic and spasm. Patient should return to the ER if symptoms continue continue to worsen. She is stable and discharged home Departure Impression Primary Impression: Biliary colic Disposition: 01 HOME, SELF-CARE Condition: Stable Departure-Patient Inst. Referrals: NO,LOCAL PHYSICIAN (PCP/Family) Primary Care Physician Patient Instructions: Gallbladder Diet, POSS GALLSTONE-W/BILIARY COLIC Add. Discharge Instructions: Please keep your appointment for your HIDA scan tomorrow Follow-up with general surgery as soon as you are able for recheck and further outpatient management You may use 600-800 mg ibuprofen every 4-6 hours as needed for pain All discharge instructions reviewed with patient and/or family. Voiced understanding. NAE ADEN DO September 06, 2021 07:22
[2021-09-06 08:14] LABS: BASOPHILS # (AUTO) 0.1 10^3/uL (0.0-0.1); BASOPHILS % (AUTO) 1 % (0-10); EOSINOPHILS # (AUTO) 0.2 10^3/uL (0.0-0.3); EOSINOPHILS % (AUTO) 2 % (0-10); HEMATOCRIT 45 % (35-52); HEMOGLOBIN 14.7 g/dL (11.5-16.0); LYMPHOCYTES # (AUTO) 3.3 10^3/uL (1.0-4.0); LYMPHOCYTES % (AUTO) 44 % (12-44); MEAN CORPUSCULAR HEMOGLOBIN 28 pg (25-34); MEAN CORPUSCULAR HGB CONC 33 g/dL (32-36); MEAN CORPUSCULAR VOLUME 84 fL (80-99); MONOCYTES # (AUTO) 0.7 10^3/uL (0.0-1.0); MONOCYTES % (AUTO) 9 % (0-12); NEUTROPHILS # (AUTO) 3.3 10^3/uL (1.8-7.8); NEUTROPHILS % (AUTO) 45 % (42-75); PLATELET COUNT 268 10^3/uL (130-400); WHITE BLOOD COUNT 7.5 10^3/uL (4.3-11.0)
[2021-09-06 08:18] LABS: ALBUMIN 4.2 GM/DL (3.2-4.5); BILIRUBIN,TOTAL 0.8 MG/DL (0.1-1.0); CALCIUM 9.8 MG/DL (8.5-10.1); CREATININE SERUM 0.79 MG/DL (0.60-1.30); POTASSIUM 4.7 MMOL/L (3.6-5.0); TOTAL PROTEIN 7.8 GM/DL (6.4-8.2)
[2021-09-06] MEDS ORDERED: HYOS0.1283 SL (08:42)
== END 2021-09-06 08:48 | disposition home or self-care (01) ==
LOC: EDUNIT# 06:52 → ER FS 06:53
DX: K80.50 Calculus of bile duct without cholangitis or cholecystitis without obstruction (principal); R74.01 Elevation of levels of liver transaminase levels; R74.8 Abnormal levels of other serum enzymes
CPT/HCPCS: 36415; 80053; 82150; 83605; 83690; 83735; 85025; 85652; 86141

== ENCOUNTER → 2021-09-07 | Outpatient (CLI) | payer OTHER ==
[~2021-09-07] MED LIST changes: +CATHETER FLUSH 10 ML SYR IVP PRN; +HYOS0.1283 SL
--- NOTE | 2021-09-07 15:05 | Diagnostic Imaging Report ---
RADIOPHARMACEUTICAL: 5.36 mCi Tc-99m Choletec IV INDICATION: Right upper quadrant pain. TECHNIQUE: Anterior dynamic imaging for 1 hour. Additional 60 minutes of imaging was performed after the patient ingested an 8-ounce can of Ensure Plus. FINDINGS: There is homogenous uptake throughout the liver. The gallbladder is visualized at 15 minutes and small bowel at 30 minutes. After the patient ingested an 8-ounce can of Ensure Plus, there is abnormal contraction of the gallbladder with a gallbladder ejection fraction calculated to be near 6%. IMPRESSION: Abnormally low gallbladder ejection fraction of 6%, which can be seen with biliary dyskinesia or chronic acalculous cholecystitis. Some medications can also result in decreased gallbladder ejection fraction. No evidence of acute cholecystitis or common duct obstruction. Dictated by: Dictated on workstation # [id number]
== END ==
LOC: CARD 12:00
PROVIDERS: ATTEND Surgery
DX: R10.11 Right upper quadrant pain (principal)
CPT/HCPCS: 78227; A9537

== ENCOUNTER 2022-07-02 22:40 | Emergency (ER) | payer OTHER ==
[~2022-07-02] VITALS: Ht 176.8 cm; Wt 115.6 kg
[~2022-07-02 22:40] MED LIST changes: -CATHETER FLUSH 10 ML SYR IVP PRN
[2022-07-02 22:48] VITALS: BP 153/78
--- NOTE | 2022-07-02 22:53 | ED Lower Extremity ---
General Chief Complaint: Lower Extremity Stated Complaint: LEFT ANKLE INJURY Source: patient Exam Limitations: no limitations History of Present Illness Date Seen by Provider: Jul 02, 2022 Time Seen by Provider: 22:45 Initial Comments Patient is a 26-year-old female presents with left ankle injury. Patient states she was sitting down when her legs fell asleep and she stood suddenly and twisted her left ankle. Patient felt a popping sensation over left lateral ankle fell forward and hit her head off of the shower door. Denies headache, facial injury neck pain or pain complaint other than left ankle. Onset: just prior to arrival Severity: mild Pain/Injury Location: left ankle Method of Injury: other Modifying Factors: Improves With Other Allergies and Home Medications Allergies Coded Allergies: No Known Drug Allergies (Unverified , 07/18/21) Patient Home Medication List Home Medication List Reviewed: Yes Famotidine (Pepcid) 20 Mg Tablet, 20 MG PO BID Prescribed by: JACKELIN FERMIN on 07/18/21 0500 Ondansetron (Ondansetron Odt) 4 Mg Tab.rapdis, 4 MG PO Q6H Prescribed by: JACKELIN FERMIN on 07/18/21 0500 Ondansetron (Ondansetron Odt) 4 Mg Tab.rapdis, 4 MG PO Q6H Prescribed by: JACKELIN FERMIN on 09/04/21 0425 Oxycodone HCl/Acetaminophen (Percocet 5-325 mg Tablet) 1 Each Tablet, 1 TAB PO Q4H Prescribed by: JACKELIN FERMIN on 09/04/21 0426 Tramadol HCl (Tramadol HCl) 50 Mg Tablet, 50 MG PO Q6H PRN for PAIN Prescribed by: JACKELIN FERMIN on 07/18/21 0500 Review of Systems Constitutional: see HPI Musculoskeletal: joint pain Past Whvbozm-Heukhv-Hafrfo Hx Patient Social History Tobacco Use?: No Use of E-Cig and/or Vaping dev: No Substance use?: No Alcohol Use?: No Pt feels they are or have been: No Immunizations Up To Date First/Initial COVID19 Vaccinat: denies Second COVID19 Vaccination Delroy: denies Third COVID19 Vaccination Date: denies Past Medical History Surgery/Hospitalization HX: GALLBLADDER SURGERY Physical Exam Vital Signs Vital Signs - First Documented 07/02/22 22:48 Temp 36.0 Pulse 95 Resp 20 B/P (MAP) 153/78 (103) Pulse Ox 100 O2 Delivery Room Air Capillary Refill : Height, Weight, BMI Height: '" Weight: lbs. oz. kg; 45.00 BMI Method: General Appearance: WD/WN, no apparent distress Ankles: left ankle pain, left ankle soft tissue tenderness, left ankle swelling (Lateral malleolus); bilateral ankle other (Left ankle, no deformity.) Progress/Results/Core Measures Results/Orders My Orders Orders - JACKELIN FERMIN DO Ankle 3 View Left (07/02/22 23:05) Vital Signs/I&O 07/02/22 22:48 Temp 36.0 Pulse 95 Resp 20 B/P (MAP) 153/78 (103) Pulse Ox 100 O2 Delivery Room Air Departure Communication (Admissions) X-ray, left ankle: No obvious displaced fracture Left ankle injury without evidence of fracture. Recommendations are supportive care with PCP follow-up. Departure-Patient Inst. Referrals: GINA CABRERA MD (PCP/Family) Primary Care Physician Patient Instructions: Ankle Sprain (DC) Add. Discharge Instructions: You were evaluated in the emergency department for left ankle injury. X-rays were obtained do not show evidence of fracture. Please wear stirrup splint, apply ice and keep leg elevated and use crutches and avoid direct weightbearing. All discharge instructions reviewed with patient and/or family. Voiced understanding. JACKELIN FERMIN DO Jul 02, 2022 22:53
[2022-07-02] MEDS ORDERED: TRM50T PO (23:16)
--- NOTE | 2022-07-03 06:47 | Diagnostic Imaging Report ---
EXAMINATION: Left ankle 3 views HISTORY: Ankle injury COMPARISON: None available. FINDINGS: There is a tiny ossific density distal to the tip of the lateral malleolus. There is lateral malleolar swelling. Mortise is intact. No other fracture seen. Joint spaces are normal. IMPRESSION: 1. Tiny ossific density distal to the tip of the lateral malleolus with overlying soft tissue injury. Findings may represent a small avulsion fracture or sequela of prior injury. Dictated by: Dictated on workstation # [id number]
== END 2022-07-02 23:47 | disposition home or self-care (01) ==
LOC: EDUNIT# 22:40 → ER FS 22:43
DX: S93.402A Sprain of unspecified ligament of left ankle, initial encounter (principal); Z28.310 Unvaccinated for COVID-19; W18.30XA Fall on same level, unspecified, initial encounter; X50.1XXA Overexertion from prolonged static or awkward postures, initial encounter; W22.8XXA Striking against or struck by other objects, initial encounter
CPT/HCPCS: 73610